=== PATIENT | male | born 1950 | race Caucasian/White ===

== ENCOUNTER 2018-01-23 12:37 | Outpatient (CLI) | payer OTHER ==
--- NOTE | 2018-01-23 14:52 | RAD ---
LEFT HEEL TWO VIEWS: History: Plantar heel pain. FINDINGS: Small spurs in plantar fascia and Achilles tendon insertion are noted. Subtalar joint is unremarkable . IMPRESSION: Calcaneal spurs. POS: JOS[facility]UA
== END 2018-01-23 12:38 | disposition home or self-care (01) ==
LOC: BICRAD 12:37
PROVIDERS: ATTEND Podiatrist
DX: M72.2 Plantar fascial fibromatosis (principal); M25.572 Pain in left ankle and joints of left foot; M77.32 Calcaneal spur, left foot

== ENCOUNTER 2020-10-15 09:30 | Emergency (ER) | payer OTHER ==
[2020-10-15] MEDS ORDERED: Calcium Chloride 1 GM/10 ML Abboject SYRINGE ONE (09:32)
[2020-10-15] MEDS ORDERED: EPINEPHrine 1 MG/10 ML Abboject SYRINGE ONE (09:32)
== END 2020-10-15 09:40 | disposition expired ==
LOC: ERS 09:30
DX: I46.9 Cardiac arrest, cause unspecified (principal)
CPT/HCPCS: 92950; J0171